=== PATIENT | male | born 1965 | race Caucasian/White ===

== ENCOUNTER 2017-09-24 19:11 | Emergency (ER) | payer SELFPAY | END 2017-09-24 20:19 | disposition home or self-care (01) | PROVIDERS: Emergency Provider Nurse Practitioner; Visit Provider Nurse Practitioner | DX: J11.1 Influenza due to unidentified influenza virus with other respiratory manifestations (principal); I10 Essential (primary) hypertension; E11.9 Type 2 diabetes mellitus without complications; Z79.4 Long term (current) use of insulin; Z79.899 Other long term (current) drug therapy | CPT/HCPCS: 87804; 99201 ==

== ENCOUNTER 2020-06-18 08:39 | Emergency (ER) | payer SELFPAY ==
[2020-06-18 08:47] VITALS: BP 143/89; PULSE 88; RESP 16; TEMP 37.1; O2SAT 98; BMI 36.0
--- NOTE | 2020-06-18 08:58 | HMH.EDGENADL ---
ED Disposition Clinical Impression: Bicipital tendinitis of right shoulder, Biceps strain Disposition: Home, Self-Care Condition on Discharge: Good Instructions: DI for Acute Pain -- Adult Prescriptions: methylPREDNISolone [Medrol 4mg tab] 4 mg PO DIRECTED #21 tab Transmission Status: Pending to [facility] Nabumetone 750 mg PO BID 10 Days #20 tab Transmission Status: Pending to [facility] Tizanidine HCl [Zanaflex 4mg tablet] 4 mg PO TID 10 Days #30 tab Transmission Status: Pending to [facility] Referrals: Crespo,Viral [Primary Care Provider] - - Critical Care Critical Care Time: No Attestation: On 06/18/20, the high probability of a clinically significant, sudden or life threatening deterioration of the following system(s) required my full and direct attention, intervention and personal management. The time I documented below is in addition to time spent performing reported procedures but includes the following listed in this critical care notation. Medical Decision Making - Medical Records Medical records reviewed: Yes: I reviewed the patient's medical records. - Raul Inquiry Pt receiving controlled substance: No Vital Signs: 06/18/20 08:47 Temperature 98.8 F Temperature Source Oral Pulse Rate [Left Radial] 88 Respiratory Rate 16 Blood Pressure [Right Arm] 143/89 H Blood Pressure Mean [Right Arm] 107 Blood Pressure Position [Right Arm] Sitting 02 Sat by Pulse Oximetry 98 Oxygen Delivery Method Room Air - Lab Data Lab results reviewed: Yes: I reviewed the patient's lab results. General Adult HPI - General Chief complaint: PAIN Stated complaint: Pulled muscles in both arms Time Seen by Provider: 06/18/20 08:55 Mode of Arrival: Ambulatory Limitations: No Limitations Description of Symptoms (Recalled from ER Triage Doc. by RN): to ed per pvt car with c/o lt upper arm pain x 2 weeks after lifting wood states increase use rt arm and injury rt upper arm from lifting yesterday. - History of Present Illness HPI narrative: 55-year-old male presents the emergency department with bicipital pain on the left and the right side. He states yesterday he was cutting his grass and today he was just very sore in his arms and can hardly flex his forearm. He states the pain is 5 out of 10 classifies it is like a sharp pulling pain. He states exacerbating factors include flexion of the forearm and alleviating factors include rest.Patient denies any recent cough or shortness of breath, patient denies any sore throat or headache, patient denies any loss of taste or smell, patient denies any malaise or fatigue, patient denies any abdominal pain nausea vomiting or diarrhea. - Related Data Home Medications Medication Instructions Recorded Confirmed allopurinol 300 mg tablet 300 mg PO tab 10/28/19 10/28/19 clonazepam 1 mg tablet 1 mg PO tab 10/28/19 10/28/19 gabapentin 400 mg capsule 400 mg PO cap 10/28/19 10/28/19 lisinopril 10 1 tab PO tab 10/28/19 10/28/19 mg-hydrochlorothiazide 12.5 mg tablet meloxicam 15 mg tablet 15 mg PO tab 10/28/19 10/28/19 pravastatin 20 mg tablet 20 mg PO tab 10/28/19 10/28/19 tramadol 50 mg tablet 50 mg PO tab 10/28/19 10/28/19 verapamil 120 mg tablet 120 mg PO tab 10/28/19 10/28/19 zolpidem 10 mg tablet 10 mg PO tab 10/28/19 10/28/19 Previous Rx's Medication Instructions Recorded Ibuprofen [Motrin 800mg Tab] 800 mg PO Q6HP PRN #20 tab 10/27/19 diclofenac sodium 1 % topical gel 4 g TOPICAL QID PRN #100 g 10/28/19 Nabumetone 750 mg PO BID 10 Days #20 tab 06/18/20 Tizanidine HCl [Zanaflex 4mg 4 mg PO TID 10 Days #30 tab 06/18/20 tablet] methylPREDNISolone [Medrol 4mg 4 mg PO DIRECTED #21 tab 06/18/20 tab] Allergies Allergy/AdvReac Type Severity Reaction Status Date / Time No Known Allergies Allergy Verified 10/28/19 13:21 [facility] History - Hepatitis A Screen Drug use history?: No High risk sexual
[2020-06-18 09:06] VITALS: BP 143/78; PULSE 87; RESP 16; TEMP 36.6; O2SAT 98
== END 2020-06-18 09:07 | disposition home or self-care (01) ==
PROVIDERS: Emergency Provider Family Medicine; PCP Family Medicine
DX: M75.21 Bicipital tendinitis, right shoulder (principal); S46.211A Strain of muscle, fascia and tendon of other parts of biceps, right arm, initial encounter; F41.9 Anxiety disorder, unspecified; Z79.899 Other long term (current) drug therapy
CPT/HCPCS: 99281

== ENCOUNTER 2022-12-19 07:51 | Emergency (ER) | payer MEDICARE, SELFPAY ==
[2022-12-19 07:53] VITALS: BP 133/80; PULSE 92; RESP 17; TEMP 36.6; O2SAT 98; BMI 36.6
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
--- NOTE | 2022-12-19 08:20 | PC.NURSE ---
pt arrived back to room
[2022-12-19 08:45] VITALS: BP 128/89; PULSE 86; RESP 17; TEMP 36.7; O2SAT 98
== END 2022-12-19 08:50 | disposition home or self-care (01) ==
PROVIDERS: Emergency Provider Student in an Organized Health Care Education/Training Program
DX: S16.1XXA Strain of muscle, fascia and tendon at neck level, initial encounter (principal); S29.012A Strain of muscle and tendon of back wall of thorax, initial encounter; V49.40XA Driver injured in collision with unspecified motor vehicles in traffic accident, initial encounter
CPT/HCPCS: 99283; 99284

== ENCOUNTER 2025-02-25 15:00 | Outpatient (CLI) | payer MEDICARE, SELFPAY | END 2025-02-25 23:59 | disposition home or self-care (01) | LOC: LAB.DROPOF 22:31 | PROVIDERS: PCP Nurse Practitioner; Visit Provider Nurse Practitioner | DX: L60.0 Ingrowing nail (principal); L60.3 Nail dystrophy; E11.8 Type 2 diabetes mellitus with unspecified complications; M79.675 Pain in left toe(s); L60.8 Other nail disorders; L60.2 Onychogryphosis; Z79.84 Long term (current) use of oral hypoglycemic drugs | CPT/HCPCS: 87070; 87205 ==

== ENCOUNTER 2025-03-21 08:44 | Emergency (ER) | payer MEDICARE, SELFPAY ==
--- OUTSIDE RECORDS SUMMARY | 2025-03-21 08:55 | XMS_ITS | Encounter Summary ---
Author Organization Healthcare Address [address] [place] [address] Care Team Providers Care Feather Washer Name Role Phone None, None Primary Care Provider [phone] Pcp, No Primary Care Provider Unavailabl e Reason for Referral * Consultation (Routine) - Authorized Specialty Diagnoses / Procedures Referred By Contac t Referred To Contact Hand Surgery Diagnoses Pain in left wrist Gian Cesar PA [address] [place] [address] Phone: tel: fax: [facility] [address] [place] [address] Phone: tel: fax: Referral ID Status Reason Start Date Expiration Date V isits Requested Visits Authorized [id number] Authorized 10/20/2023 04/20/2025 1 1 Encounter Details Date Type Department Care Team (Late st Contact Info) Description 10/20/2023 Community [facility] [address] [place] [address] Gian Cesar PA [address] [place] [address] Pain in left wrist (Primary Dx) Social History Tobacco Use Types Packs/Day Years Used Date Smoking Tobacco: Never Assessed Sex and Gender Information Value Date Recorded Sex Assigned at Not on file Legal Sex Male 3:51 PM EDT Gender Identity Not on file Sexual Orientation Not on file documented as of this encounter Plan of Treatment Scheduled Referrals Name Type Priority Associated Diagnoses Order Schedule Ambulatory referral to Orthopaedics Hand Outpatient Referral Routine Pain in left wrist Expected: 10/20/2023 (Approximate), Expires: 04/19/2025 documented as of this encounter Visit Diagnoses Diagnosis Pain in left wrist- Primary Pain in joint, forearm documented in this encounter Care Teams Feather Washer Relationship Specialty Start Date End Date None, None [address] [address] PCP - General NONE FOUND 06/20/23 05/02/24 Pcp, No [address] [place] [address] PCP - General Family Medicine 05/22/24 documented as of this encounter
--- OUTSIDE RECORDS SUMMARY | 2025-03-21 08:55 | XMS_ITS | Clinical Summary ---
Author Organization Healthcare Address [address] [id number] Care Team Providers Care Esthetic Dermatologist Name Role Phone Pcp, No Primary Care Provider Unavailabl e Allergies No known active allergies Medications lisinopril-hydr oCHLOROthiazide 10-12.5 MG tablet Take 1 tablet by mouth 1 (one) time each day. 12/19/2023 Active pravastatin (Pravachol) 20 MG tablet Take 1 tablet (20 mg) by mouth 1 (one) time each day in the evening. 12/19/2023 Active celecoxib (CeleBREX) 200 MG capsule Take 1 capsule (200 mg) by mouth 2 (two) times a day. 10/17/2023 Active etodolac (Lodine) 400 MG tablet Take 1 tablet (400 mg) by mouth 2 (two) times a day. 02/06/2024 Active metFORMIN (Glucophage) 500 MG tablet Take 1 tablet (500 mg) by mouth 2 (two) times a day. Active omeprazole (PriLOSEC) [address] capsule Take 1 capsule (20 mg) by mouth 1 (one) time each day. Active traZODone (Desyrel) 50 MG tablet Take 1 tablet (50 mg) by mouth every night. Active verapamil (Calan) 120 MG tablet Take 1 tablet (120 mg) by mouth 2 (two) times a day. Active semaglutide (Ozempic, 0.25 or 0.5 MG/DOSE,) 2 MG/1.5ML solution pen-injector inj. pen Inject 0.1875 mL (0.25 mg) under the skin 1 (one) time per week. Takes on Active Active Problems Problem Noted Date Diagnosed Date Wrist pain, left 03/01/2024 Social History Tobacco Use Types Packs/Day Years Used Date Smoking Tobacco: Never Smokeless Tobacco: Current Chew Tobacco Cessation:Ready to Q uit: Not Asked; Counseling Given: Not Answered Alcohol Use Standard Drinks/Week Comments Not Currently 0 (1 standard drink = 0.6 oz pur e alcohol) PHQ-2 Answer Date Recorded Patient Health Questionnaire-2 Score 0 05/01/2024 Sex and Gender Information Value Date Recorded Sex Assigned at Not on file Legal Sex Male 3:51 PM EDT Gender Identity Not on file Sexual Orientation Not on file Last Filed Vital Signs Vital Sign Reading Time Taken Comments Blood Pressure 124/76 05/22/2024 1:58 PM EDT Pulse 89 05/22/2024 1:58 PM EDT Temperature 36.2 C (97.1 F) 04/18/2024 4:37 PM EDT Respiratory Rate 15 04/18/2024 4:37 PM EDT Oxygen Saturation 94% 05/22/2024 1:58 PM EDT Inhaled Oxygen Concentration - - Weight 105 kg (232 lb) 05/22/2024 1:58 PM EDT Height 171.5 cm (5' 7.5 ) 05/22/2024 1:58 PM EDT Body Mass Index 35.8 05/22/2024 1:58 PM EDT Plan of Treatment Health Maintenance Due Date Last Done Comments [facility]-HIV Screening 1965 [facility]-Hepatitis C Screening 1965 [facility]-Infant/Child/Adol SDOH Screenings 1965 [facility]- SDOH Screenings 02/11/1984 [facility]-Adult SDOH Screenings 02/11/1984 [facility]-Hepatitis B Vaccines (1 of 3 - 19+ 3-dose series) 1985 CT Colonography 2011 Colonoscopy 2011 FIT-DNA 2011 FIT 2011 FOBT 2011 Sigmoidoscopy 2011 [facility]-Colorectal Cancer Screening 2011 [facility]-Zoster Vaccines (1 of 2) 02/11/2016 [facility]-DTaP,Tdap,and Td Vaccines (2 - Td or Tdap) 11/20/2022 11/20/2012 [facility]-Medicare Annual Wellness (AWV) 05/20/2023 05/20/2022 [id number] Vaccine ( season) 2024 [facility]-Depression Screening 05/01/2025 05/01/2024 [facility]-Influenza Vaccine (Season Ended) 2025 10/17/2023, 08/30/2022, 07/12/2021, Additional history exists [facility]-Pneumococcal Vaccine: 50+ Years Completed 10/17/2023, 09/20/2013 [facility]-Obesity Intervention Completed 024, 05/22/2024, 05/21/2024, Additional history exists HPV Vaccines Aged Out No longer eligi ble based on patient's age to complete this topic [facility]-HIB Vaccines Aged Out No longer e ligible based on patient's age to complete this topic [facility]-Hepatitis A Vaccines Aged Out No longer eligible based on patient's age to complete this topic [facility]-IPV Vaccines Aged Out No longer e ligible based on patient's age to complete this topic [facility]-Rotavirus Vaccines Aged Out No lo nger eligible based on patient's age to complete this topic Goals Goal Patient Goal Type Associated Problems Recent Progress Patient-Stated? Author Pt to demonstrate composite fist to [facility] within 2 weeks to increase independence with ADL's. Occupational Therapy No change(05/22 3:39 PM EDT) No Satinder Macdonald Insurance [employer] MEDICARE [facility] [employer] MEDICARE Care Teams Esthetic Dermatologist Relationship Specialty Start Date End Date Pcp, Flavia [address] [place] [address] PCP - General Family Medicine 05/22/24
--- OUTSIDE RECORDS SUMMARY | 2025-03-21 08:55 | XMS_ITS | Encounter Summary ---
Author Organization Healthcare Address [address] [place] [address] Care Team Providers Care Small Craft Operator Name Role Phone None, None Primary Care Provider [phone] Pcp, No Primary Care Provider Unavailabl e Encounter Details Date Type Department Care Team (Late st Contact Info) Description 05/16/2023 Orders Only External Location [address] [place] [address] Fertility, Physician, [address] [place], [place] [id number] Social History Tobacco Use Types Packs/Day Years Used Date Smoking Tobacco: Never Assessed Sex and Gender Information Value Date Recorded Sex Assigned at Not on file Legal Sex Male 3:51 PM EDT Gender Identity Not on file Sexual Orientation Not on file documented as of this encounter Plan of Treatment Not on file documented as of this encounter Procedures Procedure Name Priority Date/Time Associated Diagnosis Comments MR OUTSIDE IMAGES 05/16/2023 8:45 AM EDT documented in this encounter Results * MR transfer of outside films (05/16/2023 8:45 AM EDT) Anatomical Region Laterality Modality Magnetic Resonan ce 05/16/2023 8:45 AM EDT us Physician Fertility IMG MRI PROCEDURES Final Result documented in this encounter Visit Diagnoses Not on filedocumented in this encounter Care Teams Small Craft Operator Relationship Specialty Start Date End Date None, None [address] [place], [place] [id number] PCP - General NONE FOUND 06/20/23 05/02/24 Pcp, No [address] [place] [address] PCP - General Family Medicine 05/22/24 documented as of this encounter
--- OUTSIDE RECORDS SUMMARY | 2025-03-21 08:56 | XMS_ITS ---
Laboratory report Created on: March 11, 2025 RICARDO BRUNO : 1965 Sex: Male Author Organization Unknown PROBLEMS Problems List Code Description RESULTS Laboratory Orders Date Order Code Test 2025-02-25 [id number] AEROBE ID + SUSC EPT Laboratory Results Date LOINC Test Value Unit Reference Range Interpre tation 2025-02-25 [id number] AEROBE ID + SUSCEPT FINAL A 2025-02-25 [id number] RESULT 1 CORYPR A 2025-02-25 [id number] ANTIMICROBIAL SUSCEPTIBILITY [facility]
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
[2025-03-21 09:01] VITALS: BP 116/86; PULSE 92; O2SAT 95
[2025-03-21 09:02] VITALS: BP 134/79; PULSE 99; RESP 20; TEMP 37; O2SAT 96; BMI 35.2
[2025-03-21] MEDS: DOXYCYCLINE HYCL 100 MG TABLET PO (09:09)
--- NOTE | 2025-03-21 09:09 | HMH.EDGENADL ---
Discharge Plan Disposition Patient Disposition: Home, Self-Care Prescriptions Prescriptions: New doxycycline hyclate 100 mg capsule 100 mg PO BID 14 Days Qty: 28 0RF No Action zolpidem 10 mg tablet 10 mg PO Patient Comments: TAKE 1 TABLET BY MOUTH NIGHTLY AT BEDTIME pravastatin 20 mg tablet 20 mg PO Patient Comments: TAKE 1 TABLET BY MOUTH ONCE DAILY IN THE EVENING verapamil 120 mg tablet 120 mg PO Patient Comments: TAKE 1 TABLET BY MOUTH TWICE DAILY omeprazole 20 mg capsule,delayed release(DR/EC) 20 mg PO DAILY metformin 500 mg tablet 500 mg PO .2x weekly trazodone 50 mg tablet 50 mg PO DAILY Patient Comments: TAKE 1 TABLET BY MOUTH NIGHTLY doxycycline hyclate 100 mg capsule 100 mg PO BID 14 Days Qty: 28 0RF lidocaine 5 % ointment 1 applic topical BID PRN (Reason: pain) Qty: 30 0RF mupirocin 2 % ointment 1 applic topical BID 14 Days Qty: 15 0RF lidocaine (PF) 20 mg/mL (2 %) solution 20 mg peripheral nerve block ONCE Qty: 3 0RF lisinopril-hydrochlorothiazide 10-12.5 mg tablet 1 tab PO DAILY Qty: 90 3RF Patient Comments: TAKE 1 TABLET BY MOUTH ONCE DAILY Referrals Follow up/Referrals: Benjamín Landry MD [Primary Care Provider, Medical] - See instructions Activity Restrictions/Add. Instructions Additional Instructions/Restrictions: Call your family doctor to establish care for this visit to the emergency department and schedule follow-up within 48 hours to ensure improvement. If you have any worsening of your condition or any other concerning signs or symptoms, return to the emergency department or your primary care doctor for further evaluation. If tickborne illness titers returned positive, you will be contacted. Doxycycline for 14 days would be treatment While taking doxycycline, limit sunlight exposure. It can cause severe sunburns even if you do not typically get sunburn. Be sure to wear hats, long sleeves, sunscreen if you are out in the sun for prolonged periods of time while taking doxycycline. Clinical Impressions Clinical Impression: Tick bite, Acute knee pain Print Language Print Language: Kazakh Discharge ED Provider: Boni Shearer General Adult [facility] General Chief complaint: Extremity Injury, Lower Stated complaint: poss. spider bite behind right knee swelling Time Seen by Provider: 03/21/25 08:50 Mode of Arrival: Ambulatory Source of Information: Patient Description of Symptoms (Recalled from ER Triage Doc. by RN): pt is here for right knee pain and a bite that is behind knee is red and blotchy in nature with a black spot in the middle, pms intact History of Present Illness HPI narrative: Please note that above description of symptoms, in this electronic medical record under categorization of recalled from ER triage doctor by RN are reflective of an initial nursing assessment, however, is not reflective of my full history and physical exam that was personally taken and clarified. Consequentially, this preceding description of symptoms, which may include the patient's categorized chief complaint in the EMR, do not reflect my personal clinical impression, and the ultimate description of history of present illness and patient stated complaints should be deferred to this section of the note. Unless stated otherwise or congruent with this section of the note, additional signs, symptoms, or incongruence should be interpreted as inaccurate with my clinical impression. Related Data Home Medications ?Medication ?Instructions ?Recorded ?Confirmed pravastatin 20 mg tablet 20 mg PO 10/28/19 02/25/25 verapamil 120 mg tablet 120 mg PO 10/28/19 02/25/25 zolpidem 10 mg tablet 10 mg PO 10/28/19 02/25/25 metformin 500 mg tablet 500 mg PO .2x weekly 11/22/23 02/25/25 omeprazole 20 mg capsule,delayed 20 mg PO DAILY 11/22/23 02/25/25 release trazodone 50 mg tablet 50 mg PO DAILY 11/22/23 02/25/25 Previous Rx's ?Medication ?Instructions ?Recorded lisinopril 10 1 tab PO DAILY #90 tabs 05/20/22 mg-hydrochlorothiazide 12.5 mg tablet doxycycline hyclate 100 mg capsule 100 mg PO BID infection 14 days 02/25/25 #28 caps lidocaine 5 % topical ointment 1 applic topical BID PRN pain #30 02/25/25 grams mupirocin 2 % topical ointment 1 applic topical BID infection 14 02/25/25 days #15 grams doxycycline hyclate 100 mg capsule 100 mg PO BID 14 days #28 caps 03/21/25 Allergies Allergy/AdvReac Type Severity Reaction Status Date / Time No Known Allergies Allergy Verified 02/25/25 14:34 [facility] Disclaimer: The information contained in this section may have been updated after the patient was seen, as this information can be updated by other users. Social History Smoking Status: Never smoker alcohol intake: never substance use type: denies use current occupational status: other Travel in the last 8 weeks?: None household members: other housing: other Have you lived/traveled outside [place] in past 30 days?: No Contact w/someone who lives/traveled outside [place] past 30 days?: No Exposure to someone with infectious disease in past 14 days?: No Do you have a fever (greater than 100.4 F or 38 C)?: No Have you tested positive for COVID-19?: No Exposed to someone with COVID-19 in past 14 days?: No Do you have a sore throat?: No Do you have a cough?: No Do you have any weakness?: No Do you have any diarrhea?: No Are you experiencing any unusual bleeding?: No Do you have any muscle aches/pain?: No Do you have any abdominal pain?: No Are you experiencing loss of taste or smell?: No Other Medical History Have you received the Flu Vaccine for this season: No Have you received the Pneumonia Vaccine: Yes ROS Obtained: Yes All systems reviewed & no additional complaints except as documented Physical Exam General General appearance: alert Head Head exam: atraumatic and normocephalic Eye Eye exam: Present normal appearance, PERRL and EOMI Neck Neck exam: Present normal inspection, full ROM and trachea midline Respiratory Respiratory exam: Absent respiratory distress, wheezes, stridor, accessory muscle use or prolonged expiratory phase Cardiovascular Cardiovascular exam: Present other (Pulses equal symmetric in upper and lower extremities) Abdominal Exam Abdominal exam: Present soft; Absent distention, tenderness or pulsatile mass Extremities Exam Extremities exam: Absent edema Neurological Exam Neurological exam: Present alert, oriented X3 and CN II-XII intact; Absent motor sensory deficit Skin Skin exam: Present warm and dry; Absent diaphoresis or erythema Medical Decision Making Medical Records Medical records reviewed: Yes I reviewed the patient's medical records. Screening: Per USPSTF and CDC recommendations, given the prevalence of disease in our region, it is our hospital?s policy to screen for HIV and viral Hepatitis for all patients aged 18 and over and those with ongoing risk factors. Raul Inquiry Pt receiving controlled substance: No Raul was queried for this patient: No Vital Signs: 03/21/25 09:01 03/21/25 09:02 03/21/25 09:30 Temperature 98.6 F Temperature Source Oral Pulse Rate 92 H 83 Pulse Rate [Left Radial] 99 H Respiratory Rate 20 Blood Pressure 116/86 124/75 Blood Pressure [Right Arm] 134/79 Blood Pressure Mean [Right Arm] 97 02 Sat by Pulse Oximetry 95 96 98 Oxygen Delivery Method Room Air Room Air Room Air Lab Data Lab Results 03/21/25 09:02: Urine Color Yellow, Urine Appearance Clear, Urine pH 8.0, Ur Specific [place] 1.020, Urine Protein Negative, Urine Glucose (UA) Negative, Urine Ketones Negative, Urine Blood Negative, Urine Nitrate Negative, Urine Bilirubin Negative, Urine Urobilinogen 0.2, Ur Leukocyte Esterase Negative, Urine RBC None, Urine WBC Occasional, Ur Squamous Epith Cells Occasional, Urine Bacteria 1+ 03/21/25 09:12: WBC 10.1, RBC 5.24, Hgb 15.9, Hct 47.0, MCV 89.7, MCH 30.3, MCHC 33.8, RDW 12.5, Plt Count 283, MPV 9.7, Neut % (Auto) 65.4, Lymph % (Auto) 25.6, [place] % (Auto) 6.2, Eos % (Auto) 2.2, Baso % (Auto) 0.4, Neut # (Auto) 6.6, Lymph # (Auto) 2.6, [place] # (Auto) 0.6, Eos # (Auto) 0.2, Baso # (Auto) 0.0, Sodium 135 L, Potassium 4.8, Chloride 101, Carbon Dioxide 31 H, Anion Gap 7.8, BUN 12, Creatinine 0.80, Estimated Creat Clear 144, Estimated GFR 99, Est GFR ( Amer) 120, Glucose 146 H, Calcium 10.6 H, Total Bilirubin 0.8, AST 27, ALT 35, Alkaline Phosphatase 95, Total Protein 7.4, Albumin 4.6, Globulin 2.8, Albumin/Globulin Ratio 1.6 03/21/25 09:12 03/21/25 09:12 Orders (Tests/Meds): ED MEDICATIONS Discontinued Medications Generic Name Dose Route Start Last Admin Trade Name Freq PRN Reason Stop Dose Admin Dexamethasone 10 mg 03/21/25 09:00 03/21/25 09:10 Dexamethasone 1mg/1ml Intensol 10ml Udc (Er) PO 03/21/25 09:01 10 mg ONCE ONE Administration Doxycycline Hyclate 100 mg 03/21/25 09:00 03/21/25 09:09 Doxycycline Hycl 100 Mg Tablet PO 03/21/25 09:01 100 mg ONCE ONE Administration Ketorolac Tromethamine 15 mg 03/21/25 09:00 03/21/25 09:10 Ketorolac 30mg/Ml Vial IV 03/21/25 09:01 15 mg ONCE ONE Administration ORDERS Category Date Time Status CBC w/Auto Diff [Complete Blood Count Auto Diff] Stat Lab 03/21/25 09:12 Completed CMP [Comprehensive Metabolic Panel] Stat Lab 03/21/25 09:12 Completed Human Granulocytic Omer-HGE Stat Lab 03/21/25 09:12 Received Lyme Ab, Modified 2-Tier Stat Lab 03/21/25 09:12 Received UA [Urinalysis and Microscopic] Stat Lab 03/21/25 09:02 Completed Medical Decision Narrative: 60-year-old male presenting with right knee pain. He states that he noticed a red spot behind his right knee a couple days prior to this. No fevers or chills, but does state that he send multiple tick bites, unknown if this is related. No fevers or chills, systemic signs or symptoms, night sweats, unintended weight loss, urinary symptoms, vision symptoms. He does state that he can bear weight, but knee is maximally tender inferior to the patella overlying his patellar tendon and maximally tender with extension of the knee. Has noticed anything that makes it better or worse otherwise. History was obtained via conversation with patient. On arrival, patient hemodynamically stable, alert, oriented x4, appropriate, GCS 15, moving all extremities spontaneously, pupils equal and reactive to light. Full physical exam performed and significant for well-appearing male no acute distress. He has bug bite on the posterior aspect of his right knee with surrounding erythema consistent with cellulitis. No obvious fluctuation or significant amount of induration. Range of motion of knee is intact, no joint space tenderness, no tenderness about patellar ligament or with patellar glide. No tenderness with axial load of the lower extremity, but maximal tenderness when extending knee against resistance. Minimal tenderness when flexing knee against resistance. Neurovascularly intact and no obvious effusion, erythema, or outward signs of abnormality. Differential includes reactive arthritis, tickborne illness, MSK injury, among others Patient was given doxycycline, Toradol, dexamethasone for symptomatic management and correction of underlying abnormalities. Workup independently interpreted and significant for nonactionable CBC. Patient's sodium a little low at 135, calcium level at 10.6, but otherwise largely nonactionable chemistry. X-rays were considered, but patient has no trauma to the area, no falls, normal outward exam, able to bear weight, no joint space tenderness, neurovascularly intact and full range of motion, not deemed necessary. On reevaluation, patient resting comfortably. Given patient presentation, workup, history, this most likely represents inflammatory versus reactive arthritis versus patellar tendinitis. Less likely septic arthritis. Patient has full range of motion, no outward signs of effusion or redness, no systemic signs or symptoms, no trauma to the area, history of bacteremia, IV drug abuse, or any other risk factors. Also less likely fracture given no history of trauma, etc. No outward signs of abnormality and able to bear weight. Doxycycline for home-going, tickborne illness titers were sent, close return precautions discussed. Because patient at baseline without signs or symptoms of clinical decompensation, deemed appropriate for discharge. Results were relayed to patient who voiced understanding and were agreeable to outpatient management and follow up. I discussed my clinical impression with patient and answered all questions. At this time, the evidence for any other entities in the differential is insufficient to warrant any further testing or ED observation. This was explained as well. Advisory was given that persistent or worsening symptoms require further evaluation. I confirmed the understanding of this discussion. [employer] disclaimer Much of this encounter note is an electronic overhead crane technician spoken language to printed text. Electronic overhead crane technician of the spoken language may permit errors. Although I have reviewed the note, some errors may still exist. Critical Care Critical Care Time Critical Care Time: No
[2025-03-21] MEDS: KETOROLAC 30MG/ML VIAL 15 MG IV (09:10)
[2025-03-21] MEDS: DEXAMETHASONE 1MG/1ML INTENSOL 10ML UDC (ER) 10 MG PO (09:10)
[2025-03-21 09:19] LABS: Lyme Ab IgM CIA ND; Lyme IgG CIA ND
--- NOTE | 2025-03-21 09:20 | PC.NURSE ---
Dr. Shearer at [facility] for pt eval
[2025-03-21 09:21] LABS: Basophils % 0.4 % (0.1-2.0); Eosinophils # 0.2 Kmm3 (0.0-0.4); Eosinophils % 2.2 % (0.1-12.0); Hemoglobin 15.9 g/dL (14.1-18.0); Immature Granulocytes # 0.02 10^3uL; Immature Granulocytes % 0.2 %; Lymphocytes # 2.6 K/mm3 (0.7-4.5); Lymphocytes % 25.6 % (10-50); Mean Corpuscular HGB Conc 33.8 g/dL (31.8-35.4); Mean Corpuscular Hemoglobin 30.3 pg (27.0-31.2); Mean Corpuscular Volume 89.7 fl (80-94); Mean Platelet Volume 9.7 fl (7.4-10.4); Monocytes # 0.6 K/mm3 (0.1-1.0); Monocytes % 6.2 % (1.7-9.3); Neutrophils # 6.6 K/mm3 (1.8-7.8); Neutrophils % 65.4 % (37.0-80.0); Nucleated Red Blood Cells # 0 10^3/uL; Nucleated Red Blood Cells % 0 %; Platelet Count 283 K/mm3 (142-424); Red Blood Count 5.24 M/mm3 (4.60-6.20); Red Cell Distribution Width 12.5 % (11.5-17.5); Red Cell Distribution Width-SD 40.9 fL; White Blood Count 10.1 K/mm3 (4.8-10.8)
[2025-03-21 09:30] VITALS: BP 124/75; PULSE 83; O2SAT 98
[2025-03-21 09:38] LABS: Alanine Aminotransferase 35 U/L (12-78); Albumin Level 4.6 g/dl (3.5-5.0); Albumin/Globulin Ratio 1.6 (1.1-1.8); Alkaline Phosphatase 95 U/L (38-126); Anion Gap 7.8 mEq/L (5-15); Aspartate Amino Transferase 27 U/L (17-59); Bilirubin,Total 0.8 mg/dl (0.2-1.3); Blood Urea Nitrogen 12 mg/dl (9-20); Calcium 10.6 mg/dl (8.4-10.2); Carbon Dioxide 31 mmol/L (22.0-30.0); Chloride 101 mmol/L (98-107); Creatinine Clearance Estimated 144 mL/min (50-200); Estimated Glomerular Filt Rate 99 ml/min (>60); GFR (African American) 120 ML/MIN (>60); Globulin 2.8 g/dL (1.3-3.2); Glucose 146 mg/dl (74-100); Potassium 4.8 mmoL/L (3.5-5.1); Sodium 135 mmol/L (136-145); Total Protein,Serum 7.4 g/dl (6.3-8.2)
[2025-03-21 09:51] LABS: Microscopic, Urine URINE MICROSCOPIC (MICROSCOPIC)
[2025-03-21 09:54] LABS: Appearance,Urine CLEAR (Clear); Bilirubin,Urine Negative (Negative); Blood, Urine Negative (Negative); Color,Urine YELLOW (Yellow); Glucose,Urine (UA) Negative (Negative); Ketones,Urine Negative (Negative); Leukocyte Esterase,Urine Negative (Negative); Nitrate,Urine Negative (Negative); Protein,Urine Negative (Negative); Urobilinogen,Urine 0.2 EU/dl (0.2)
[2025-03-21 10:01] VITALS: BP 108/67; PULSE 84; O2SAT 96
[2025-03-21 10:01] LABS: Bacteria,Urine 1+ /lpf; Squamous Epithelial Cell,Urine Occasional #/hpf (0-5); WBC,Urine Occasional #/hpf (0-3)
[2025-03-21 10:16] VITALS: BP 108/67; PULSE 67; RESP 16; TEMP 36.9; O2SAT 100
[2025-03-22 12:11] LABS: Lyme Ab CIA Negative (Negative)
[2025-03-24 20:23] LABS: Neisseria gonorrhoeae, NAA Negative (Negative)
[2025-04-04 15:35] LABS: HGE IgG Titer NEGATIVE
[2025-04-04 15:36] LABS: HGE IgM Titer NEGATIVE
== END 2025-03-21 10:28 | disposition home or self-care (01) ==
PROVIDERS: Emergency Provider Emergency Medicine; PCP Family Medicine
DX: S80.261A Insect bite (nonvenomous), right knee, initial encounter (principal); W57.XXXA Bitten or stung by nonvenomous insect and other nonvenomous arthropods, initial encounter; M25.561 Pain in right knee
CPT/HCPCS: 80053; 81001; 85025; 86618; 86666; 87491; 87591; 96374; 99284; J1885